=== PATIENT | male | born 1965 | race Caucasian/White ===

== ENCOUNTER 2022-11-23 10:36 | Emergency (ER) | payer OTHER ==
[2022-11-23] MEDS ORDERED: Sodium Chloride 0.9% 1,000 ML IV ONE ×2 (11:31→13:16)
[2022-11-23] MEDS: Sodium Chloride 0.9% 10 ML Syringe FLUSH PRN ×2 (11:49→15:07)
[2022-11-23] MEDS ORDERED: Iopamidol 755 Mg/ML 100 ML Bottle IVPUSH ONE (14:59)
== END 2022-11-23 17:00 | disposition home or self-care (01) ==
LOC: JD.ED 10:36
DX: J18.9 Pneumonia, unspecified organism (principal); N28.9 Disorder of kidney and ureter, unspecified; R34 Anuria and oliguria; Z88.5 Allergy status to narcotic agent; Z88.1 Allergy status to other antibiotic agents
CPT/HCPCS: 36415; 74177; 80053; 81001; 85025; 96360; 96361; 99284; J3490; J7030; Q9967